=== PATIENT | female | born 1985 | race American Indian/Alaskan Native ===

== ENCOUNTER 2017-03-22 13:59 | Emergency (ER) | payer MEDICARE, MEDICAID ==
[2017-03-22 14:30] VITALS: BMI 42.3
[2017-03-22 14:31] VITALS: RESP 18; TEMP 98.5
--- NOTE | 2017-03-22 15:13 | C.PDOC ---
History Of Present Illness 31 year old female presents to ED with complaints of swelling and pain to left labia which she noticed this morning. She reports history of abscess in the past with surgical drainage by Dr Crespo, but not to this area. Patient Denies any fever, injury, drainage or any other complaints. Time Seen by Provider: 03/22/17 14:50 Chief Complaint (Nursing): Female Genitourinary History Per: Patient History/Exam Limitations: no limitations Onset/Duration Of Symptoms: Hrs Current Symptoms Are (Timing): Still Present Quality Of Discomfort: "Pain" Associated Symptoms: denies: Fever Past Medical History Reviewed: Historical Data, Nursing Documentation, Vital Signs Vital Signs: Last Vital Signs Temp 98.5 F 03/22/17 14:30 Pulse 78 03/22/17 15:26 Resp 18 03/22/17 15:26 BP 132/75 03/22/17 15:26 Pulse Ox 97 03/22/17 16:45 - Medical History PMH: Fractures (TOE TAPED NO SURGERY LEFT FOOT) - [facility] Procedures ATTACH PEDICLE GRAFT NEC (03/19/14) CENTRAL VENOUS CATHETER PLACEMENT WITH GUIDANCE (05/21/13) CLOSURE SKIN & SUBCUTANEOUS NEC (05/21/13) DRAINAGE OF RIGHT AXILLA, OPEN APPROACH, DIAGNOSTIC (07/05/16) EXCISION OF R UP LEG SUBCU/FASCIA, OPEN APPROACH (07/05/16) INFLUENZA VACCINATION (08/15/13) NONEXCIS DEBRID OF WOUND, INFECT, OR BURN (08/15/13) OTHER SKIN & SUBQ I D (08/15/13) PERCUTANEOUS ABDOMINAL DRAINAGE (05/21/13) RADICAL EXCIS SKIN LES (10/17/14) REPAIR ABDOMEN SUBCUTANEOUS TISSUE AND FASCIA, OPEN APPROACH (01/07/16) SKIN REPAIR & PLASTY NEC (10/17/14) VACCINATION NEC (08/15/13) Family History: States: Unknown Family Hx - Social History Hx Tobacco Use: Yes Hx Alcohol Use: Yes Hx Substance Use: No - Immunization History Hx Tetanus Toxoid Vaccination: Yes Hx Influenza Vaccination: Yes Hx Pneumococcal Vaccination: No Review Of Systems Constitutional: Negative for: Fever, Chills Gastrointestinal: Negative for: Abdominal Pain Genitourinary: Negative for: Dysuria, Frequency, Vaginal Bleeding Physical Exam - Physical Exam Appears: Non-toxic, No Acute Distress Skin: Normal Color, Warm Head: Atraumatic, Normacephalic Oral Mucosa: Moist Cardiovascular: Rhythm Regular, No Murmur Respiratory: Normal Breath Sounds, No Rales, No Rhonchi, No Wheezing Gastrointestinal/Abdominal: Soft, No Tenderness, No Guarding, No Rebound Pelvic: Other (Left labia with tender indurated 1cm nodule and swelling to laba , no flunctuance) Extremity: Normal ROM, Capillary Refill (<2 seconds) Neurological/Psych: Oriented x3, Normal Speech, Normal Cognition ED Course And Treatment O2 Sat by Pulse Oximetry: 97 (RA) Pulse Ox Interpretation: Normal Medical Decision Making Medical Decision Makin31 year old female with tender nodule to left labia and surrounding inflammation , possible early abscess. Incision and drainage not indicated at this time. Recommend soaking area with warm towel or sitz bath and have area checked in 2- 3 days. Patient verbalized understanding. Disposition Counseled Patient/Family Regarding: Diagnosis, Need For Followup, Rx Given - Disposition Referrals: Demetris Crespo MD [Staff Provider] - Disposition: HOME/ ROUTINE Disposition Time: 15:11 Condition: STABLE Additional Instructions: Apply warm compress to area and sit in warm bath Take antibiotic as prescribed May need to have area checked again in 2-3 days for possible drainage Take pain medicine as needed Prescriptions: Sulfamethoxazole/Trimethoprim [Bactrim DS 800 mg-160 mg] 1 tab PO BID #14 tab Instructions: Sitz Bath (GEN), Cyst (ED) - POA Present On Arrival: None - Clinical Impression Clinical Impression: Swelling of labia - 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 - Scribe Statement The provider has reviewed the documentation as recorded by the Woodrowibdebi Villarreal All medical record entries made by the Rene were at my direction and personally dictated by me. I have reviewed the chart and agree that the record accurately reflects my personal performance of the history, physical exam, medical decision making, and the department course for this patient. I have also personally directed, reviewed, and agree with the discharge instructions and disposition.
[2017-03-22 15:27] VITALS: BP 132/75; PULSE 78
[2017-03-22 16:45] VITALS: O2SAT 97
== END 2017-03-22 15:27 | disposition home or self-care (01) ==
LOC: C.ER 13:59
DX: N90.89 Other specified noninflammatory disorders of vulva and perineum (principal)

== ENCOUNTER 2017-05-05 09:21 | Inpatient (IN) | payer OTHER, MEDICAID ==
[2017-05-05 09:22] VITALS: BMI 42.3
--- NOTE | 2017-05-05 09:43 | C.PDOC ---
History Of Present Illness Patient is a 31 y/o F with hx of abscesses that require surgical drainage, presenting with abscess Time Seen by Provider: 05/05/17 09:37 Chief Complaint (Nursing): Abnormal Skin Integrity Past Medical History Vital Signs: Last Vital Signs Temp 98.4 F 05/05/17 09:36 Pulse 77 05/05/17 10:20 Resp 20 05/05/17 10:20 BP 141/88 05/05/17 10:20 Pulse Ox 99 05/05/17 10:20 - Medical History PMH: Fractures (TOE TAPED NO SURGERY LEFT FOOT) Denies: Chronic Kidney Disease - [facility] Procedures ATTACH PEDICLE GRAFT NEC (03/19/14) CENTRAL VENOUS CATHETER PLACEMENT WITH GUIDANCE (05/21/13) CLOSURE SKIN & SUBCUTANEOUS NEC (05/21/13) DRAINAGE OF RIGHT AXILLA, OPEN APPROACH, DIAGNOSTIC (07/05/16) EXCISION OF R UP LEG SUBCU/FASCIA, OPEN APPROACH (07/05/16) INFLUENZA VACCINATION (08/15/13) NONEXCIS DEBRID OF WOUND, INFECT, OR BURN (08/15/13) OTHER SKIN & SUBQ I D (08/15/13) PERCUTANEOUS ABDOMINAL DRAINAGE (05/21/13) RADICAL EXCIS SKIN LES (10/17/14) REPAIR ABDOMEN SUBCUTANEOUS TISSUE AND FASCIA, OPEN APPROACH (01/07/16) SKIN REPAIR & PLASTY NEC (10/17/14) VACCINATION NEC (08/15/13) Family History: States: Unknown Family Hx - Social History Hx Tobacco Use: Yes Hx Alcohol Use: Yes Hx Substance Use: No - Immunization History Hx Tetanus Toxoid Vaccination: Yes Hx Influenza Vaccination: Yes Hx Pneumococcal Vaccination: No Review Of Systems Constitutional: Negative for: Fever, Chills Cardiovascular: Negative for: Chest Pain Respiratory: Negative for: Cough, Shortness of Breath, SOB with Excertion, Wheezing Gastrointestinal: Negative for: Nausea, Vomiting, Abdominal Pain, Diarrhea, Constipation Skin: Positive for: Other (abscess to R axilla) Physical Exam - Physical Exam Appears: Well, Non-toxic Skin: Other (indurated abscess to R axilla) Head: Atraumatic, Normacephalic Eye(s): bilateral: Normal Inspection, PERRL, EOMI Neck: Normal, Supple Chest: Symmetrical Cardiovascular: Rhythm Regular Respiratory: Normal Breath Sounds, No Rales, No Rhonchi, No Wheezing Gastrointestinal/Abdominal: Soft, No Tenderness Back: Normal Inspection, No CVA Tenderness Extremity: Normal ROM, No Pedal Edema Pulses: Left Radial: Normal, Right Radial: Normal Neurological/Psych: Oriented x3 Gait: Steady ED Course And Treatment - Laboratory Results Result Diagrams: 05/05/17 10:25 05/05/17 10:25 Medical Decision Making Medical Decision Making: Will get ekg, cxray, and pre-op labs. Patient has been NPO since midnight. Spoke to Dr. Crespo who will take patient to OR today for I&D. Requesting admission to hospitalist with IV antibiotics (ancef) 10:12AM EKG shows NSR at 81bpm with normal intervals and no ST changes. Cxray negative 10:44AM Labs grossly normal. negative. Dr. Mahmood accepts patient to his service. Disposition - Disposition Disposition: HOSPITALIZED Disposition Time: 10:46 Condition: FAIR - Clinical Impression Clinical Impression: Abscess Decision To Admit - Pt Status Changed To: Hospital Disposition Of: Observation - . Bed Request Type: Regular Admitting Physician: Ja Mahmood Patient Diagnosis: Abscess
[2017-05-05] MEDS: Sodium Chloride 0.9% 1,000 ML IV SCH (10:13)
[2017-05-05] MEDS ORDERED: Sodium Chloride 0.9% 1,000 ML ONE (10:17)
[2017-05-05 10:30] LABS: BASO % 0.3 % (0.0-2.0); EOS # 0.1 K/uL (0.0-0.7); EOS % 1.6 % (0.0-4.0); HEMOGLOBIN 11.8 g/dL (11.0-16.0); LYMPH # 3.3 K/uL (1.0-4.3); LYMPH % 41.2 % (20.0-40.0); MEAN CELL VOLUME 88.5 fL (81.0-99.0); MEAN CORPUSCULAR HEMOGLOBIN 29.3 pg (27.0-31.0); MEAN CORPUSCULAR HGB CONC 33.1 g/dL (33.0-37.0); MEAN PLATELET VOLUME 9.5 fL (7.2-11.7); MONO # 0.4 K/uL (0.0-0.8); MONO % 5.3 % (0.0-10.0); NEUT # 4.1 K/uL (1.8-7.0); NEUT % 51.6 % (50.0-75.0); RBC 4.01 Mil/uL (3.80-5.20); RED CELL DISTRIBUTION WIDTH 14.3 % (11.5-14.5)
[2017-05-05 10:42] LABS: ALBUMIN 3.8 g/dL (3.5-5.0); ALT/SGPT 25 U/L (9-52); AST/SGOT 23 U/L (14-36); BLOOD UREA NITROGEN 14 mg/dL (7-17); CALCIUM 8.6 mg/dl (8.6-10.4); GFR AFRICAN-AMERICAN > 60; GFR NON-AFRICAN AMERICAN > 60; INR 1.1; PROTHROMBIN TIME 12.4 SECONDS (9.7-12.2)
--- NOTE | 2017-05-05 10:50 | RAD ---
HISTORY: pre-op COMPARISON: No prior. FINDINGS: LUNGS: Mild venous congestion. PLEURA: No significant pleural effusion identified, no pneumothorax apparent. CARDIOVASCULAR: Normal. OSSEOUS STRUCTURES: No significant abnormalities. VISUALIZED UPPER ABDOMEN: Normal. OTHER FINDINGS: None. IMPRESSION: Mild venous congestion.
--- NOTE | 2017-05-05 11:53 | CP.PCM.HP ---
<Jesse Palacios - Last Filed: 05/05/17 15:23> History of Present Illness - History of Present Illness History of Present Illness: PGY1 Medicine Note for Dr. Brenna Mahmood Patient is a 31 yo F with hx of abscesses that require surgical drainage, presenting with an abscess in her right axilla. The patient states that she has had many abscesses form from her waist up to her arms over the past 4-5 years. The patient noticed this current abscess approximately a day or two ago. She called Dr. Crsepo who imformed her to go to the hospital and he will perform an I&D later this afternoon. Patient denies f/c, n/v, d/c, sob, cough, cp, dizziness, blurred vision, slurred speech, REIS, weakness, numbness, tingling, rash or any open wounds. PMH: abscesses requiring I&D PSH: none other than I&D FamilyHx: unremarkable - mom/dad/sister - healthy Social: Denies tobacco/alcohol/drug Present on Admission - Present on Admission Any Indicators Present on Admission: No Review of Systems - Review of Systems All systems: reviewed and no additional remarkable complaints except - Constitutional Constitutional: As Per HPI - EENT Eyes: As Per HPI Ears: As Per HPI Nose/Mouth/Throat: As Per HPI - Breasts Breasts: As Per HPI - Cardiovascular Cardiovascular: As Per HPI - Respiratory Respiratory: As Per HPI - Gastrointestinal Gastrointestinal: As Per HPI - Genitourinary Genitourinary: As Per HPI - Reproductive: Female Reproductive:Female: As Per HPI - Menstruation Menstruation: As Per HPI - Musculoskeletal Musculoskeletal: As Per HPI - Integumentary Integumentary: As Per HPI - Neurological Neurological: As Per HPI - Psychiatric Psychiatric: As Per HPI - Endocrine Endocrine: As Per HPI - Hematologic/Lymphatic Hematologic: As Per HPI Past Patient History - Infectious Disease Hx of Infectious Diseases: None - Past Medical History & Family History Past Medical History?: Yes - Past Social History Smoking Status: Light Smoker < 10 Cigarettes Daily - CARDIAC Hx Cardiac Disorders: No - PULMONARY Hx Respiratory Disorders: No - NEUROLOGICAL Hx Neurological Disorder: No - HEENT Hx HEENT Problems: No - RENAL Hx Chronic Kidney Disease: No - ENDOCRINE/METABOLIC Hx Endocrine Disorders: No - HEMATOLOGICAL/ONCOLOGICAL Hx Blood Disorders: No - INTEGUMENTARY Hx Dermatological Problems: Yes Other/Comment: recurrent multiple skin abscesses - MUSCULOSKELETAL/RHEUMATOLOGICAL Hx Fractures: Yes (TOE TAPED NO SURGERY LEFT FOOT) - GASTROINTESTINAL Hx Gastrointestinal Disorders: No - GENITOURINARY/GYNECOLOGICAL Hx Genitourinary Disorders: No - PSYCHIATRIC Hx Substance Use: No - SURGICAL HISTORY Hx Surgeries: Yes Other/Comment: Incision and drainage of abscess (rt. armpit, under the stomach, ) 2013 EXC. SUPRAPUBIC MASS - ANESTHESIA Hx Anesthesia: Yes Hx Anesthesia Reactions: No Hx Malignant Hyperthermia: No Meds Allergies/Adverse Reactions: Allergies Allergy/AdvReac Type Severity Reaction Status Date / Time No Known Allergies Allergy Verified 05/05/17 09:42 Physical Exam - Constitutional Appears: Well, No Acute Distress - Head Exam Head Exam: ATRAUMATIC, NORMOCEPHALIC - Eye Exam Eye Exam: EOMI - ENT Exam ENT Exam: Mucous Membranes Moist - Respiratory Exam Respiratory Exam: Clear to Auscultation Bilateral, NORMAL BREATHING PATTERN. absent: Accessory Muscle Use, Rhonchi, Wheezes, Respiratory Distress - Cardiovascular Exam Cardiovascular Exam: REGULAR RHYTHM, +S1, +S2 - GI/Abdominal Exam GI & Abdominal Exam: Normal Bowel Sounds, Soft. absent: Distended, Firm, Guarding, Rigid, Tenderness - Neurological Exam Neurological exam: Alert, Oriented x3 - Psychiatric Exam Psychiatric exam: Normal Affect, Normal Mood - Skin Skin Exam: Dry, Normal Color, Warm Results - Vital Signs Recent Vital Signs: Last Vital Signs Temp 98.4 F 05/05/17 09:36 Pulse 77 05/05/17 10:20 Resp 20 05/05/17 10:20 BP 141/88 05/05/17 10:20 Pulse Ox 99 05/05/17 10:20 - Labs Result Diagrams: 05/05/17 10:25 05/05/17 10:25 Labs: Laboratory Results - last 24 hr 05/05/17 05/05/17 05/05/17 10:24 10:25 10:25 WBC 8.0 RBC 4.01 Hgb 11.8 Hct 35.5 MCV 88.5 MCH 29.3 MCHC 33.1 RDW 14.3 Plt Count 263 MPV 9.5 Neut % (Auto) 51.6 Lymph % (Auto) 41.2 H [place] % (Auto) 5.3 Eos % (Auto) 1.6 Baso % (Auto) 0.3 Neut # 4.1 Lymph # 3.3 [place] # 0.4 Eos # 0.1 Baso # 0.0 PT 12.4 H INR 1.1 APTT 33 Sodium Potassium Chloride Carbon Dioxide Anion Gap BUN Creatinine Est GFR ( Amer) Est GFR (Non-Af Amer) Random Glucose Calcium Total Bilirubin AST ALT Alkaline Phosphatase Total Protein Albumin Globulin Albumin/Globulin Ratio Blood Type A POSITIVE 05/05/17 10:25 WBC RBC Hgb Hct MCV MCH MCHC RDW Plt Count MPV Neut % (Auto) Lymph % (Auto) [place] % (Auto) Eos % (Auto) Baso % (Auto) Neut # Lymph # [place] # Eos # Baso # PT INR APTT Sodium 139 Potassium 3.9 Chloride 101 Carbon Dioxide 26 Anion Gap 16 BUN 14 Creatinine 0.7 Est GFR ( Amer) > 60 Est GFR (Non-Af Amer) > 60 Random Glucose 95 Calcium 8.6 Total Bilirubin 0.4 AST 23 ALT 25 Alkaline Phosphatase 53 Total Protein 7.8 Albumin 3.8 Globulin 4.0 H Albumin/Globulin Ratio 1.0 Blood Type Assessment & Plan - Assessment and Plan (Free Text) Plan: Right Axilla Abscess Scheduled for I&D with Dr. Crespo later today Ancef 500mg once in ED CXR/EKG - unremarkable No chronic issues Patient medically stabilized for surgery F/U AM labs Case Discussed With Dr. Brenna Palacios PGY1 - Date & Time Date: 05/05/17 Time: 11:52 <Ja Mahmood - Last Filed: 05/05/17 21:34> Results - Vital Signs Recent Vital Signs: Last Vital Signs Temp 97.6 F 05/05/17 17:44 Pulse 75 05/05/17 17:44 Resp 18 05/05/17 17:44 BP 133/80 05/05/17 17:44 Pulse Ox 99 05/05/17 17:44 - Labs Result Diagrams: 05/05/17 10:25 05/05/17 10:25 Attending/Attestation - Attestation I have personally seen and examined this patient.: Yes I have fully participated in the care of the patient.: Yes I have reviewed all pertinent clinical information: Yes Notes (Text): 05/05/17 21:28 Patient was seen and examined at 11:50 AM in the ER History, Physical, Assessment and Plan were thoroughly gone over with the resident. Also noted on exam above: Right Axilla irregular hardness, extremely tender to the touch: this was a large area and adequate measurement could not be obtained Also noted on GI exam in the LLQ there are 2 small 1 cm areas of hardness under the skin that are not tender (patient explains that she has made Dr. Crespo aware of these areas and was told that they do not need to be I&D at this time). Patient was also concerned about the possibility of an abscess on the Left Labial Fold of the vaginal area however no hardness/fluctuance was palpated ( this portion of the exam was done in the presence of Nurse Mcdowell in the ER) Dr. Crespo asked this patient to be admitted to the Hospitalist Service. Please note that there are NO chronic medical issues for this patient other than recurrent abscesses Ja Mahmood D.O.
[2017-05-05] MEDS ORDERED: Propofol 10 mg/ml Inj (20 ML) ONE (14:38)
[2017-05-05] MEDS ORDERED: Lidocaine Hydrochloride 5 ML INJ ONE ×2 (14:39→14:41)
[2017-05-05] MEDS ORDERED: HYDROmorphone 0.5 mg/0.5 ml ISec IVP PRN (15:58)
[2017-05-05] MEDS ORDERED: Bupivacaine 0.5%/Epi 1:200,000 (10 ML SOL) ONE (16:16)
[2017-05-05] MEDS ORDERED: Bupivacaine HCl 0.5% PF (10 ml) Inj ONE (16:17)
[2017-05-05] MEDS ORDERED: Lactated Ringer's 1,000 ML IV ONE (17:30)
[2017-05-05] MEDS: Oxycodone/Acetaminophen 5/325 mg Tab PO PRN ×2 (18:22→22:04)
[2017-05-05] MEDS: Dextrose 5%/0.45% NS 1,000 ML IV SCH (22:05)
[2017-05-05] MEDS: Benzocaine/Menthol (Cepacol) Lozenge MT PRN (22:17)
[2017-05-06] MEDS: Benzocaine/Menthol (Cepacol) Lozenge MT PRN ×2 (03:38→14:11)
--- NOTE | 2017-05-06 04:01 | OP ---
PROCEDURE DATE: 05/05/2017 PREOPERATIVE DIAGNOSIS: Large right axillary abscess. POSTOPERATIVE DIAGNOSIS: Large right axillary abscess. PROCEDURE PERFORMED: Wide and deep excision of 5 cm inflammatory mass of right axilla with drainage of underlying abscess, repair of axillary blood vessel and partial adjacent tissue transfer closure. SURGEON: Dr. Crespo. TYPE OF ANESTHESIA: General. ESTIMATED BLOOD LOSS: 30 mL. POSTOPERATIVE CONDITION: Stable. INDICATIONS FOR SURGERY: This is a 31-year-old female with onset of painful infected mass in the right axilla, suspicious for underlying abscess. She was taken to the OR after presenting in the emergency room. DESCRIPTION OF PROCEDURE: The patient was taken to the operating room with the right arm extended and the axillary area was prepped and draped. A generous elliptical incision was made surrounding the inflammatory mass down into the axillary fascia and it was completely removed. Bleeding was controlled using Bovie and exposed bleeding blood vessel was repaired and the wound was irrigated with copious amounts of saline solution. A partial tissue transfer closure was performed at the periphery and the central portion of the wound was packed with a wet saline gauze. The patient tolerated the procedure well and returned to recovery room in stable condition. Demetris Crespo MD
[2017-05-06] MEDS: Oxycodone/Acetaminophen 5/325 mg Tab PO PRN (06:07)
[2017-05-06] MEDS: Sodium Chloride 0.9% 1,000 ML IV SCH (06:11)
[2017-05-06 07:21] LABS: BASO % 0.6 % (0.0-2.0); EOS # 0.1 K/uL (0.0-0.7); EOS % 1.7 % (0.0-4.0); HEMOGLOBIN 10.6 g/dL (11.0-16.0); LYMPH # 3.6 K/uL (1.0-4.3); LYMPH % 49.7 % (20.0-40.0); MEAN CELL VOLUME 88.3 fL (81.0-99.0); MEAN CORPUSCULAR HEMOGLOBIN 29.8 pg (27.0-31.0); MEAN CORPUSCULAR HGB CONC 33.7 g/dL (33.0-37.0); MEAN PLATELET VOLUME 9.2 fL (7.2-11.7); MONO # 0.4 K/uL (0.0-0.8); MONO % 5.5 % (0.0-10.0); NEUT # 3.1 K/uL (1.8-7.0); NEUT % 42.5 % (50.0-75.0); NRBC % 0.1 % (0.0-2.0); RBC 3.56 Mil/uL (3.80-5.20); RED CELL DISTRIBUTION WIDTH 14.4 % (11.5-14.5); WHITE BLOOD COUNT 7.3 K/uL (4.8-10.8)
[2017-05-06 07:26] LABS: ALBUMIN 3.3 g/dL (3.5-5.0)
[2017-05-06 07:29] LABS: AST/SGOT 20 U/L (14-36); GFR AFRICAN-AMERICAN > 60; GFR NON-AFRICAN AMERICAN > 60
[2017-05-06 07:30] LABS: ALT/SGPT 29 U/L (9-52); BLOOD UREA NITROGEN 10 mg/dL (7-17); CALCIUM 7.8 mg/dl (8.6-10.4)
[2017-05-06] MEDS: Dextrose 5%/0.45% NS 1,000 ML IV SCH (09:55)
--- NOTE | 2017-05-06 12:44 | CP.PCM.CON ---
History of Present Illness - History of Present Illness History of Present Illness: Hospitalist Consult Note (Patient was seen and examined at 12:25 PM 05/06/17 wit Mom present) 31 year old female who was admitted on 05/05/17 for I&D of Right Axilla Abscess which she underwent on 05/05/[address] Crespo. She currently is NPO and another I&D is planned for 3 PM today. Currently there is NO chest pain, NO palpitations, NO SOB/Cough/Wheezing, (+) Mild Soreness in the throat, NO abdominal pain, NO n/v/d, Has not moved her bowels today as she states she has not been eating since her admission, NO burning/pain with urination, NO lightheadedness/dizziness, NO new changes in vision/eye pain, NO new changes in hearing/ear pain, NO paresthesias. NO edema. (+)Soreness in the Right Axilla and she states that her pain is controlled and she is not in any distress. Exam: General: AAOx3, NAD HEENT: NCA, EOMI, PERRLA, NO cervical/supraclavicular/submandibular lymphadenopathy, NO thyromegaly, NO pharngeal erythema/exudate Cardio: NS1 and NS2, NO M/R/G Resp: CTA B/L, NO R/R/W GI: BSx4, Soft, NT, ND, Central Obesity, NO guarding/rebound tenderness Ext: Capillary Refill is 2 seconds, NO edema, Pulses are strong and equal, Tenderness in the Right Axilla area Neuro: CNII through XII are grossly intact Assessment and Plan: 1). Right Axilla Abscess Management as per Primary Dr. Crespo Patient already has Cepacol Lozenges on board for the soreness in the throat: the pharyngeal and neck exam was unremarkable Patient was encouraged to use the incentive spirometer 10 times every hour As patient is stable and there are no chronic medical issues at this time, Medicine Team will be signing off. Please give us a call/reconsult us if there are any issues. Ja Mahmood D.O. Past Patient History - Infectious Disease Hx of Infectious Diseases: None - Past Medical History & Family History Past Medical History?: Yes - Past Social History Smoking Status: Light Smoker < 10 Cigarettes Daily - CARDIAC Hx Cardiac Disorders: No - PULMONARY Hx Respiratory Disorders: No - NEUROLOGICAL Hx Neurological Disorder: No - HEENT Hx HEENT Problems: No - RENAL Hx Chronic Kidney Disease: No - ENDOCRINE/METABOLIC Hx Endocrine Disorders: No - HEMATOLOGICAL/ONCOLOGICAL Hx Blood Disorders: No - INTEGUMENTARY Hx Dermatological Problems: Yes Other/Comment: recurrent multiple skin abscesses - MUSCULOSKELETAL/RHEUMATOLOGICAL Hx Fractures: Yes (TOE TAPED NO SURGERY LEFT FOOT) - GASTROINTESTINAL Hx Gastrointestinal Disorders: No - GENITOURINARY/GYNECOLOGICAL Hx Genitourinary Disorders: No - PSYCHIATRIC Hx Substance Use: No - SURGICAL HISTORY Hx Surgeries: Yes Other/Comment: Incision and drainage of abscess (rt. armpit, under the stomach, ) 2013 EXC. SUPRAPUBIC MASS - ANESTHESIA Hx Anesthesia: Yes Hx Anesthesia Reactions: No Hx Malignant Hyperthermia: No Meds Allergies/Adverse Reactions: Allergies Allergy/AdvReac Type Severity Reaction Status Date / Time No Known Allergies Allergy Verified 05/05/17 09:42 - Medications Medications: Current Medications Benzocaine/Menthol (Cepacol Sore Throat) 1 tabitha MT Q4 PRN PRN Reason: Sore Throat Last Admin: 05/06/17 03:38 Dose: 1 tabitha Docusate Sodium (Colace) 100 mg PO BID [facility] Last Admin: 05/06/17 09:55 Dose: Not Given Famotidine (Pepcid) 20 mg IVP Q12 [facility] Last Admin: 05/06/17 09:55 Dose: 20 mg Hydromorphone HCl (Dilaudid) 0.5 mg IVP Q10M PRN PRN Reason: Pain, moderate (4-7) Sodium Chloride (Sodium Chloride 0.9%) 1,000 mls @ 100 mls/hr IV .Q10H [facility] Last Admin: 05/06/17 06:11 Dose: Not Given Dextrose/Sodium Chloride (Dextrose 5%/0.45% Ns 1000 Ml) 1,000 mls @ 60 mls/hr IV .[id number] [facility] Last Admin: 05/06/17 09:55 Dose: Not Given Ondansetron HCl (Zofran Inj) 4 mg IVP Q6 PRN PRN Reason: Nausea/Vomiting Oxycodone/Acetaminophen (Percocet 5/325 Mg Tab) 2 tab PO Q4H PRN PRN Reason: pain Stop: 05/08/17 16:24 Last Admin: 05/06/17 06:07 Dose: 2 tab Results - Vital Signs Recent Vital Signs: Last Vital Signs Temp 98.0 F 05/06/17 07:00 Pulse 73 05/06/17 07:00 Resp 20 05/06/17 07:00 BP 117/77 05/06/17 07:00 Pulse Ox 96 05/06/17 07:00 - Labs Result Diagrams: 05/06/17 07:10 05/06/17 07:10 Labs: Laboratory Results - last 24 hr 05/06/17 05/06/17 07:10 07:10 WBC 7.3 RBC 3.56 L Hgb 10.6 L Hct 31.5 L MCV 88.3 MCH 29.8 MCHC 33.7 RDW 14.4 Plt Count 253 MPV 9.2 Neut % (Auto) 42.5 L Lymph % (Auto) 49.7 H [place] % (Auto) 5.5 Eos % (Auto) 1.7 Baso % (Auto) 0.6 Neut # 3.1 Lymph # 3.6 [place] # 0.4 Eos # 0.1 Baso # 0.0 Sodium 136 Potassium 3.8 Chloride 99 Carbon Dioxide 28 Anion Gap 12 BUN 10 Creatinine 0.7 Est GFR ( Amer) > 60 Est GFR (Non-Af Amer) > 60 Random Glucose 92 Calcium 7.8 L Total Bilirubin 0.5 AST 20 ALT 29 Alkaline Phosphatase 42 Total Protein 6.7 Albumin 3.3 L Globulin 3.4 Albumin/Globulin Ratio 1.0 Beta HCG, Quant < 2.39
[2017-05-06] MEDS ORDERED: Midazolam 2 MG/2 ML VIAL ONE (15:39)
[2017-05-06] MEDS ORDERED: Propofol 10 mg/ml Inj (20 ML) ONE ×2 (15:40→16:19)
[2017-05-06] MEDS ORDERED: Bupivacaine HCl 0.25% PF (10 ml) Inj ONE ×2 (15:43→16:10)
[2017-05-06] MEDS ORDERED: Lactated Ringer's 1,000 ML IV ONE (15:50)
[2017-05-06] MEDS ORDERED: ceFAZolin IV 2 gm in Dextrose 1 GM/50 ML BAG IVPB ONE (15:50)
[2017-05-06] MEDS ORDERED: Bacitracin Ointment 30 GM TUBE ONE (16:21)
[2017-05-06] MEDS ORDERED: HYDROmorphone 0.5 mg/0.5 ml ISec IVP PRN (16:36)
[2017-05-06 17:25] VITALS: BP 135/84; PULSE 87; RESP 18; TEMP 98; O2SAT 97
--- NOTE | 2017-05-07 04:31 | OP ---
PROCEDURE DATE: 05/06/2017 PREOPERATIVE DIAGNOSIS: Infected abscess cavity, right axilla. POSTOPERATIVE DIAGNOSIS: Infected abscess cavity, right axilla. PROCEDURES: 1. Re-drainage of deep right axillary abscess with debridement. 2. Adjacent tissue transfer closure greater than 30 sq cm. SURGEON: Dr. Demetris Crespo. TYPE OF ANESTHESIA: Local sedation. ESTIMATED BLOOD LOSS: 20 mL. POSTOPERATIVE CONDITION: Stable. INDICATIONS FOR SURGERY: This is a 31-year-old female with recurrent right axillary abscess, who presented yesterday, underwent incision, drainage, and debridement of the very deep abscess. She has a deep packing in, taken back to the OR under anesthesia for change, cleansing, possible closure. DESCRIPTION OF THE PROCEDURE: The patient was taken to the operating room, IV sedation was administered and the right arm was extended in the axillary area, the packing was removed and the area was prepped and draped. The wound was aggressively debrided and any remaining collections were drained and cultured. Bleeding was controlled using the Bovie. Next, generous tissue flaps were raised using the Bovie and an adjacent tissue transfer closure greater than 30 sq cm was performed using multiple layers, heavy Monocryl, and subcuticular Monocryl. The patient tolerated the procedure well and returned to recovery room in stable condition. Demetris Crespo MD
== END 2017-05-06 18:48 | disposition home or self-care (01) | DRG 572 ==
LOC: C.ER 09:21 → C.SDS 10:00 → C.9E 10:09 → C.5T 13:36 → C.9E 14:02 → C.5T 14:19 → OBSVTOIN 16:23
PROVIDERS: ADMIT Family Medicine; ATTEND Family Medicine
PROC: 0J9D0ZZ Drainage of Right Upper Arm Subcutaneous Tissue and Fascia, Open Approach (ICD-10-PCS; 2017-05-05)
PROC: 0JX Subcutaneous Tissue and Fascia, Transfer (ICD-10-PCS; 2017-05-05)
PROC: 0JBD0ZZ Excision of Right Upper Arm Subcutaneous Tissue and Fascia, Open Approach (ICD-10-PCS; principal; 2017-05-05 15:40)
PROC: 0J9D0ZZ Drainage of Right Upper Arm Subcutaneous Tissue and Fascia, Open Approach (ICD-10-PCS; 2017-05-06)
PROC: 0JBD0ZZ Excision of Right Upper Arm Subcutaneous Tissue and Fascia, Open Approach (ICD-10-PCS; 2017-05-06)
PROC: 0JXL0ZZ Transfer Right Upper Leg Subcutaneous Tissue and Fascia, Open Approach (ICD-10-PCS; 2017-05-06)
DX: L02.411 Cutaneous abscess of right axilla (principal)

== ENCOUNTER 2018-12-19 13:16 | Inpatient (IN) | payer MEDICARE, MEDICAID ==
[2018-12-19 13:16] VITALS: BMI 42.3
--- NOTE | 2018-12-19 14:00 | C.PDOC ---
History Of Present Illness 33 y/o female presents to the ED for evaluation of abscess in the right axilla, developing for the past week. Patient reports there are two swollen, painful areas in the right axilla. No drainage. She describes 10/10 pain in the area, and has been taking Advil at home with minimal relief. She also notes subjective fever, chills, and nausea. No vomiting or diarrhea. Patient reports hx of multiple abscesses in the past (to both axilla, abdomen, and lower extremity), some of which required surgery to drain. She went to see her surgeon Dr. Crespo today, who referred patient here for same day surgery. Otherwise patient denies any chest pain, SOB, extremity weakness, numbness, or paresthesias. Time Seen by Provider: 12/19/18 13:41 Chief Complaint (Nursing): Abnormal Skin Integrity History Per: Patient History/Exam Limitations: no limitations Onset/Duration Of Symptoms: Days (x 7) Current Symptoms Are (Timing): Still Present Past Medical History Reviewed: Historical Data, Nursing Documentation, Vital Signs Vital Signs: Last Vital Signs Temp 98.8 F 12/19/18 13:34 Pulse 86 12/19/18 13:34 Resp 18 12/19/18 13:34 BP 119/83 12/19/18 13:34 Pulse Ox 99 12/19/18 13:34 - Medical History PMH: Fractures (TOE TAPED NO SURGERY LEFT FOOT) Denies: Chronic Kidney Disease - [facility] Procedures ATTACH PEDICLE GRAFT NEC (03/19/14) CENTRAL VENOUS CATHETER PLACEMENT WITH GUIDANCE (05/21/13) CLOSURE SKIN & SUBCUTANEOUS NEC (05/21/13) DRAINAGE OF R UP ARM SUBCU/FASCIA, OPEN APPROACH (05/05/17) DRAINAGE OF RIGHT AXILLA, OPEN APPROACH, DIAGNOSTIC (07/05/16) EXCISION OF R UP ARM SUBCU/FASCIA, OPEN APPROACH (05/05/17) EXCISION OF R UP LEG SUBCU/FASCIA, OPEN APPROACH (07/05/16) INFLUENZA VACCINATION (08/15/13) NONEXCIS DEBRID OF WOUND, INFECT, OR BURN (08/15/13) OTHER SKIN & SUBQ I D (08/15/13) PERCUTANEOUS ABDOMINAL DRAINAGE (05/21/13) RADICAL EXCIS SKIN LES (10/17/14) REPAIR ABDOMEN SUBCUTANEOUS TISSUE AND FASCIA, OPEN APPROACH (01/07/16) SKIN REPAIR & PLASTY NEC (10/17/14) TRANSFER R UP ARM SUBCU/FASCIA, PERC APPROACH (05/05/17) TRANSFER R UP LEG SUBCU/FASCIA, OPEN APPROACH (05/05/17) VACCINATION NEC (08/15/13) Family History: States: Unknown Family Hx - Social History Hx Tobacco Use: Yes Hx Alcohol Use: Yes (socially) Hx Substance Use: No - Immunization History Hx Tetanus Toxoid Vaccination: Yes Hx Influenza Vaccination: Yes Hx Pneumococcal Vaccination: No Review Of Systems Constitutional: Positive for: Fever, Chills Cardiovascular: Negative for: Chest Pain Respiratory: Negative for: Cough, Shortness of Breath Gastrointestinal: Positive for: Nausea. Negative for: Vomiting, Abdominal Pain, Diarrhea Musculoskeletal: Negative for: Back Pain Skin: Positive for: Other (painful abscesses x2 to right axilla) Neurological: Negative for: Weakness, Numbness Physical Exam - Physical Exam Appears: Well, Non-toxic, No Acute Distress Skin: Normal Color, Warm Head: Atraumatic, Normacephalic Eye(s): bilateral: Normal Inspection Neck: Normal ROM Chest: Symmetrical Cardiovascular: Rhythm Regular Respiratory: Normal Breath Sounds, No Accessory Muscle Use Extremity: Normal ROM (to upper extremities), Capillary Refill (less than 2 sec), Other (Right axilla is edematous and warm to touch, with 2 palpable abscesses -- the smaller is carlitos-sized and fluctuant, no active drainage; the larger is 2 inches in diameter, indurated, and fluctuant, with no drainage) Pulses: Left Radial: Normal, Right Radial: Normal Neurological/Psych: Oriented x3 ED Course And Treatment - Laboratory Results Result Diagrams: 12/19/18 14:25 12/19/18 14:25 ECG: Interpreted By Me, Viewed By Me ECG Rhythm: Sinus Rhythm ECG Interpretation: Normal Rate From EC O2 Sat by Pulse Oximetry: 99 Pulse Ox Interpretation: Normal Medical Decision Making Medical Decision Making: Plan: 13:[address] Crespo, who will take patient to the OR this afternoon. Requests pre-op labs and to start patient on IV vanco. Pending admission under PMD Dr. Donnelly. Attempted to call Dr. Donnelly via cell phone x2 with no answer. 14:00 Paged the office, on hold for 25+ minutes with no answer. 14:[address] Donnelly, states he will call back. 14:40 OR is ready for patient. Discussed with Dr. Crespo, will admit patient under [facility] service at this time. Disposition - Disposition Disposition: HOSPITALIZED Disposition Time: 14:40 Condition: STABLE - Clinical Impression Clinical Impression: Axillary abscess - PA / TERMITE INSPECTOR / 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 - Scribe Statement The provider has reviewed the documentation as recorded by the Scribe Bharati Miles All medical record entries made by the Woodrow[place] were at my direction and personally dictated by me. I have reviewed the chart and agree that the record accurately reflects my personal performance of the history, physical exam, medical decision making, and the department course for this patient. I have also personally directed, reviewed, and agree with the discharge instructions and disposition. Decision To Admit - Pt Status Changed To: Hospital Disposition Of: Observation - . Bed Request Type: Same Day Surgery Admitting Physician: Demetris Crespo Patient Diagnosis: Axillary abscess
[2018-12-19 14:29] LABS: BASO # 0.1 K/uL (0.0-0.2); BASO % 0.7 % (0.0-2.0); EOS # 0.1 K/uL (0.0-0.7); EOS % 0.9 % (0.0-4.0); HEMOGLOBIN 12.1 g/dL (11.0-16.0); LYMPH # 2.9 K/uL (1.0-4.3); MEAN CORPUSCULAR HEMOGLOBIN 30.5 pg (27.0-31.0); MEAN CORPUSCULAR HGB CONC 33.9 g/dL (33.0-37.0); MONO # 0.5 K/uL (0.0-0.8); MONO % 5.9 % (0.0-10.0); NEUT # 5.1 K/uL (1.8-7.0); NEUT % 58.5 % (50.0-75.0); RBC 3.97 Mil/uL (3.80-5.20); RED CELL DISTRIBUTION WIDTH 13.7 % (11.5-14.5); WHITE BLOOD COUNT 8.7 K/uL (4.8-10.8)
[2018-12-19 14:38] LABS: INR 1.3; PROTHROMBIN TIME 14.3 SECONDS (9.7-12.2)
[2018-12-19] MEDS ORDERED: Vancomycin 1 GM 1 GM/250 ML BAG IVPB ONE (14:44)
[2018-12-19 14:45] LABS: ALB/GLOB RATIO 1.1 (1.0-2.1); ALBUMIN 4.3 g/dL (3.5-5.0); ALT/SGPT 9 U/L (9-52); AST/SGOT 26 U/L (14-36); BLOOD UREA NITROGEN 14 mg/dL (7-17); CALCIUM 9.3 mg/dl (8.6-10.4); GFR NON-AFRICAN AMERICAN > 60
[2018-12-19 15:22] LABS: HCG,QUALITATIVE URINE NEGATIVE (NEGATIVE)
[2018-12-19 15:33] LABS: SQUAMOUS EPITHIAL 2 /hpf (0-5); URINE BILIRUBIN NEGATIVE (NEGATIVE); URINE BLOOD NEGATIVE (NEGATIVE); URINE CLARITY Hazy (Clear); URINE COLOR Yellow (YELLOW); URINE GLUCOSE (UA) NORMAL (Normal); URINE LEUKOCYTE ESTERASE NEG Leu/uL (Negative); URINE PROTEIN NEGATIVE (NEGATIVE); URINE UROBILINOGEN NORMAL mg/dL (0.2-1.0)
[2018-12-19] MEDS ORDERED: Midazolam 2 MG/2 ML VIAL ONE (15:47)
[2018-12-19] MEDS ORDERED: Propofol 10 mg/ml Inj (20 ML) ONE (15:47)
[2018-12-19] MEDS ORDERED: Bupivacaine 0.25% 20 ML INJ IJ ONE (15:47)
[2018-12-19] MEDS ORDERED: Lidocaine Hydrochloride 10 ML INJ ONE (15:47)
[2018-12-19] MEDS: Lactated Ringer's 1,000 ML IV SCH (16:45)
[2018-12-19] MEDS: Oxycodone/Acetaminophen 5/325 mg Tab PO PRN (22:20)
[2018-12-20] MEDS: Lactated Ringer's 1,000 ML IV SCH ×4 (00:02→06:00)
[2018-12-20] MEDS: Oxycodone/Acetaminophen 5/325 mg Tab PO PRN ×3 (03:30→23:50)
[2018-12-20 07:26] LABS: BASO % 0.3 % (0.0-2.0); EOS # 0.1 K/uL (0.0-0.7); EOS % 1.8 % (0.0-4.0); HEMOGLOBIN 10.3 g/dL (11.0-16.0); LYMPH # 3.1 K/uL (1.0-4.3); LYMPH % 40.6 % (20.0-40.0); MEAN CELL VOLUME 90.8 fL (81.0-99.0); MEAN CORPUSCULAR HEMOGLOBIN 30.4 pg (27.0-31.0); MEAN CORPUSCULAR HGB CONC 33.5 g/dL (33.0-37.0); MEAN PLATELET VOLUME 8.9 fL (7.2-11.7); MONO # 0.4 K/uL (0.0-0.8); MONO % 5.6 % (0.0-10.0); NEUT # 3.9 K/uL (1.8-7.0); NEUT % 51.7 % (50.0-75.0); RBC 3.4 Mil/uL (3.80-5.20); RED CELL DISTRIBUTION WIDTH 13.6 % (11.5-14.5); WHITE BLOOD COUNT 7.5 K/uL (4.8-10.8)
[2018-12-20 07:45] LABS: ALB/GLOB RATIO 1.1 (1.0-2.1); ALBUMIN 3.5 g/dL (3.5-5.0); ALT/SGPT 9 U/L (9-52); AST/SGOT 46 U/L (14-36); BLOOD UREA NITROGEN 17 mg/dL (7-17); CALCIUM 8.2 mg/dl (8.6-10.4); GFR NON-AFRICAN AMERICAN > 60
--- NOTE | 2018-12-20 08:53 | OP ---
PROCEDURE DATE: 12/19/2018 PREOPERATIVE DIAGNOSIS: Infected mass of right axilla. POSTOPERATIVE DIAGNOSIS: Infected mass of right axilla. PROCEDURE PERFORMED: Wide and deep excision of infected mass right drainage of underlying abscess and infection debridement and partial flap closure. SURGEON: Demetris Crespo MD ANESTHESIA: General. BLOOD LOSS: 30 mL. POSTOPERATIVE CONDITION: Stable. INDICATIONS FOR SURGERY: This is a 33-year-old female with history of a large right axillary abscess present in my office, was admitted through the emergency room. For now, we will undergo debridement and drainage procedure. DESCRIPTION OF PROCEDURE: The patient was taken to the operating room. General anesthesia was administered. The right axilla was prepped and draped. A generous elliptical incision was made surrounding the infected mass, totaling of 5 cm. It was excised deep into the fascia and removed. Underlying pus was drained and cultured. Bleeding was controlled using the Bovie. A larger axillary blood vessel was repaired. Wound was irrigated and debrided with pulse irrigation and also with Kantrex. Generous flaps were raised. Counter incisions were made, and a partial tissue flap closure was performed at the periphery using heavy Monocryl. Central portion of wound was packed open with saline gauze. The patient tolerated the procedure well and returned to recovery room in stable condition. Demetris Crespo MD
[2018-12-20] MEDS ORDERED: Influenza Vaccine 60 mcg/0.5 mL SYR (4YR UP) IM ONE (10:00)
[2018-12-20] MEDS: Enoxaparin 40 mg Syringe SC SCH (10:04)
[2018-12-20] MEDS ORDERED: Propofol 10 mg/ml Inj (20 ML) ONE (17:10)
[2018-12-20] MEDS ORDERED: Midazolam 2 MG/2 ML VIAL ONE (17:10)
[2018-12-20] MEDS: HYDROmorphone 0.5 mg/0.5 ml ISec IVP PRN ×2 (17:48→18:00)
[2018-12-20] MEDS ORDERED: Lactated Ringer's 1,000 ML IV ONE (18:30)
--- NOTE | 2018-12-20 21:19 | CP.PCM.CON ---
History of Present Illness - History of Present Illness History of Present Illness: 33 y/o female admitted with abscess in the right axilla, developing for the past week. She also notes subjective fever, chills, Patient reports hx of multiple abscesses in the past (to both axilla, abdomen, and lower extremity), some of which required surgery to drain. ID consulted empiric IV rx ordered PMH: multiple skin infections obesity Denies: Chronic Kidney Disease - [facility] Procedures ATTACH PEDICLE GRAFT NEC (03/19/14) CENTRAL VENOUS CATHETER PLACEMENT WITH GUIDANCE (05/21/13) CLOSURE SKIN & SUBCUTANEOUS NEC (05/21/13) DRAINAGE OF R UP ARM SUBCU/FASCIA, OPEN APPROACH (05/05/17) DRAINAGE OF RIGHT AXILLA, OPEN APPROACH, DIAGNOSTIC (07/05/16) EXCISION OF R UP ARM SUBCU/FASCIA, OPEN APPROACH (05/05/17) EXCISION OF R UP LEG SUBCU/FASCIA, OPEN APPROACH (07/05/16) INFLUENZA VACCINATION (08/15/13) NONEXCIS DEBRID OF WOUND, INFECT, OR BURN (08/15/13) OTHER SKIN & SUBQ I D (08/15/13) PERCUTANEOUS ABDOMINAL DRAINAGE (05/21/13) RADICAL EXCIS SKIN LES (10/17/14) REPAIR ABDOMEN SUBCUTANEOUS TISSUE AND FASCIA, OPEN APPROACH (01/07/16) SKIN REPAIR & PLASTY NEC (10/17/14) TRANSFER R UP ARM SUBCU/FASCIA, PERC APPROACH (05/05/17) TRANSFER R UP LEG SUBCU/FASCIA, OPEN APPROACH (05/05/17) VACCINATION NEC (08/15/13) Review of Systems - Constitutional Constitutional: absent: As Per HPI, Anorexia, Chills, Daytime Sleepiness, Excessive Sweating, Fatigue, Fever, Frequent Falls, Headache, Increased Appetite, Lethargy, Malaise, Night Sweats, Snoring, Sleep Apnea, Weight Gain, Weight Loss, Weakness, Other - EENT Eyes: absent: As Per HPI, Blind Spots, Blurred Vision, Change in Vision, Decreased Night Vision, Diplopia, Discharge, Dry Eye, Exophthalmos, Floaters, Irritation, Itchy Eyes, Loss of Peripheral Vision, Pain, Photophobia, Requires Corrective Lenses, Sees Flashes, Spots in Vision, Tunnel Vision, Other Visual Disturbances, Loss of Vision, Other Ears: absent: As Per HPI, Decreased Hearing, Ear Discharge, Ear Pain, Tinnitus, Abnormal Hearing, Disequilibrium, Dizziness, Other Nose/Mouth/Throat: absent: As Per HPI, Epistaxis, Nasal Congestion, Nasal Discharge, Nasal Obstruction, Nasal Trauma, Nose Pain, Post Nasal Drip, Sinus Pain, Sinus Pressure, Bleeding Gums, Change in Voice, Dental Pain, Dry Mouth, Dysphagia, Halitosis, Hoarsness, Lip Swelling, Mouth Lesions, Mouth Pain, Odynophagia, Sore Throat, Throat Swelling, Tongue Swelling, Facial Pain, Neck Pain, Neck Mass, Other - Breasts Breasts: absent: As Per HPI, Change in Shape, Mass, Pain, Nipple Discharge, Nipple Inversion, Skin Changes, Swelling, Other - Cardiovascular Cardiovascular: absent: As Per HPI, Acrocyanosis, Chest Pain, Chest Pain at Rest, Chest Pain with Activity, Claudication, Diaphoresis, Dyspnea, Dyspnea on Exertion, Edema, Irregular Heart Rhythm, Pain Radiating to Arm/Neck/Jaw, Leg Edema, Leg Ulcers, Lightheadedness, Orthopnea, Palpitations, Paroxysmal Nocturnal Dyspnea, Pedal Edema, Radiating Pain, Rapid Heart Rate, Slow Heart Rate, Syncope, Other - Respiratory Respiratory: absent: As Per HPI, Cough, Dyspnea, Hemoptysis, Dyspnea on Exertion, Wheezing, Snoring, Stridor, Pain on Inspiration, Chest Congestion, Excessive Mucous Production, Change in Mucous Color, Pain with Coughing, Other - Gastrointestinal Gastrointestinal: absent: As Per HPI, Abdominal Pain, Belching, Bloating, Change in Bowel Habits, Change in Stool Character, Coffee Ground Emesis, Constipation, Cramping, Diarrhea, Dyspepsia, Dysphagia, Early Satiety, Excessive Flatus, Fecal Incontinence, Heartburn, Hematemesis, Hematochezia, Loose Stools, Melena, Nausea, Odynophagia, Temesmus, Vomiting, Other - Genitourinary Genitourinary: absent: As Per HPI, Change in Urinary Stream, Difficulty Urinating, Dysuria, Flank Pain, Hematuria, Pyuria, Nocturia, Urinary Incontinence, Urinary Frequency, Urinary Hesitance, Urinary Urgency, Voiding Freq/Small Amts, Freq UTI, Hx Renal/Bladder Calculi, Hx /Renal Surgery, Bladder Distension, Other - Reproductive: Female Reproductive:Female: absent: As Per HPI, Amenorrhea, Amenorrhea/ Control, Currently Menstual, Cycle <21 Days, Cycle >35 Days, Cycle Variable, Menses 1-7 Days, Menses >/= 8 Days, Menses Variable, Cycle > 4 Weeks Between, No Menses for 6 Months, Heavy Menses, Light Menses, Normal Menses, Spotting Between Cycles, S/P Hysterectomy, Menopausal, Post Menopausal, Premenarche, Abnormal Vaginal Bleeding, Dysmenorrhea, Dyspareunia, Genital Lesions, Genital Pruritis, Pelvic Pain, Prolapse Symptoms, Sexual Dysfunction, Vaginal Discharge, Vaginal Dryness, Vaginal Odor, Vaginal Pruritis, Other - Menstruation Menstruation: absent: As Per HPI, Amenorrhea, Amenorrhea/ Control, Currentl y Menstual, Cycle <21 Days, Cycle >35 Days, Cycle Variable, Menses 1-7 Days, Menses >/= 8 Days, Menses Variable, Cycle > 4 Weeks Between, No Menses for 6 Months, Heavy Menses, Light Menses, Normal Menses, Spotting Between Cycles, S/P Hysterectomy, Menopausal, Post Menopausal, Premenarche, Abnormal Vaginal Bleeding, Dysmenorrhea, Other - Musculoskeletal Musculoskeletal: absent: As Per HPI, Abnormal Gait, Arthralgias, Atrophy, Back Pain, Deformity, Joint Swelling, Limited Range of Motion, Loss of Height, Muscle Cramps, Muscle Weakness, Myalgias, Neck Pain, Numbness, Radiating Pain into Limb, Stiffness, Tingling, Other - Integumentary Integumentary: As Per HPI - Neurological Neurological: absent: As Per HPI, Abnormal Gait, Abnormal Hearing, Abnormal Movements, Abnormal Speech, Behavioral Changes, Burning Sensations, Confusion, Convulsions, Disequilibrium, Dizziness, Numbness, Focal Weakness, Frequent Falls, Headaches, Lack of Coordination, Loss of Vision, Memory Loss, Par esthesias, Radicular Pain, Restless Legs, Sensory Deficit, Syncope, Tingling, Tremor, Vertigo, Weakness, Other Visual Disturbances, Other - Psychiatric Psychiatric: absent: As Per HPI, Abnormal Sleep Pattern, Anhedonia, Anxiety, Auditory Hallucinations, Behavioral Changes, Change in Appetite, Change in Libido, Confusion, Depression, Difficulty Concentrating, Hallucinations, Homicidal Ideation, Hopelessness, Irritability, Memory Loss, Mood Swings, Panic Attacks, Paranoia, Suicidal Ideation, Visual Hallucinations, Tactile Hallucinations, Other - Endocrine Endocrine: absent: As Per HPI, Change in Body Appearance, Change in Libido, Cold Intolorance, Deepening of Voice, Excessive Sweating, Fatigue, Flushing, Heat Intolorance, Increase in Ring/Shoe/Hat Size, Palpitations, Polydipsia, Polyphagia, Polyuria, Other - Hematologic/Lymphatic Hematologic: absent: As Per HPI, Easy Bleeding, Easy Bruising, Lymphadenopathy, Other Past Patient History - Infectious Disease Hx of Infectious Diseases: None - Past Medical History & Family History Past Medical History?: Yes - Past Social History Smoking Status: Light Smoker < 10 Cigarettes Daily - CARDIAC Hx Cardiac Disorders: No - PULMONARY Hx Respiratory Disorders: No - NEUROLOGICAL Hx Neurological Disorder: No - HEENT Hx HEENT Problems: No - RENAL Hx Chronic Kidney Disease: No - ENDOCRINE/METABOLIC Hx Endocrine Disorders: No - HEMATOLOGICAL/ONCOLOGICAL Hx Blood Disorders: No - INTEGUMENTARY Hx Dermatological Problems: Yes Other/Comment: recurrent multiple skin abscesses - MUSCULOSKELETAL/RHEUMATOLOGICAL Hx Fractures: Yes (TOE TAPED NO SURGERY LEFT FOOT) - GASTROINTESTINAL Hx Gastrointestinal Disorders: No - GENITOURINARY/GYNECOLOGICAL Hx Genitourinary Disorders: No - PSYCHIATRIC Hx Substance Use: No - SURGICAL HISTORY Hx Surgeries: Yes Other/Comment: Incision and drainage of abscess (rt. armpit, under the stomach,) 2013 EXC. SUPRAPUBIC MASS - ANESTHESIA Hx Anesthesia: Yes Hx Anesthesia Reactions: No Hx Malignant Hyperthermia: No Meds Allergies/Adverse Reactions: Allergies Allergy/AdvReac Type Severity Reaction Status Date / Time No Known Allergies Allergy Verified 12/19/18 13:37 - Medications Medications: Current Medications Docusate Sodium (Colace) 100 mg PO BID [facility] Enoxaparin Sodium (Lovenox) 40 mg SC DAILY [facility] Lactated Ringer's (Lactated Ringer's) 1,000 mls @ 100 mls/hr IV .Q10H [facility] Lactated Ringer's (Lactated Ringer's) 1,000 mls @ 80 mls/hr IV .[id number] [facility] Influenza Virus Vaccine (Flucelvax Quad [id number] Syr) 60 mcg IM .ONCE ONE Stop: 12/20/18 10:01 Oxycodone/Acetaminophen (Percocet 5/325 Mg Tab) 2 tab PO Q4H PRN PRN Reason: pain Stop: 12/22/18 16:35 Pantoprazole Sodium (Protonix Inj) 40 mg IVP DAILY [facility] Physical Exam - Constitutional Appears: Non-toxic, Chronically Ill - Head Exam Head Exam: ATRAUMATIC, NORMAL INSPECTION, NORMOCEPHALIC - Eye Exam Eye Exam: EOMI, Normal appearance, PERRL Pupil Exam: NORMAL ACCOMODATION, PERRL - ENT Exam ENT Exam: Mucous Membranes Moist, Normal Exam - Neck Exam Neck exam: Positive for: Normal Inspection - Respiratory Exam Respiratory Exam: Clear to Auscultation Bilateral, NORMAL BREATHING PATTERN - Cardiovascular Exam Cardiovascular Exam: REGULAR RHYTHM - GI/Abdominal Exam GI & Abdominal Exam: Normal Bowel Sounds, Soft. absent: Tenderness - Rectal Exam Rectal Exam: Deferred - Exam Exam: NORMAL INSPECTION - Extremities Exam Extremities exam: Positive for: normal inspection. Negative for: joint swelling - Back Exam Back exam: NORMAL INSPECTION - Neurological Exam Neurological exam: Alert, CN II-XII Intact, Normal Gait, Oriented x3, Reflexes Normal - Psychiatric Exam Psychiatric exam: Normal Affect, Normal Mood - Skin Skin Exam: Dry Additional comments: wound / packing in right axilla with tenderness warmth Results - Vital Signs Recent Vital Signs: Last Vital Signs Temp 98.3 F 12/19/18 17:57 Pulse 79 12/19/18 17:57 Resp 20 12/19/18 17:57 BP 113/74 12/19/18 17:57 Pulse Ox 97 12/19/18 17:57 - Labs Result Diagrams: 12/20/18 07:19 12/20/18 07:19 Labs: Laboratory Results - last 24 hr 12/19/18 12/19/18 12/19/18 14:25 14:25 14:25 WBC 8.7 RBC 3.97 Hgb 12.1 Hct 35.7 MCV 90.0 MCH 30.5 MCHC 33.9 RDW 13.7 Plt Count 339 MPV 9.0 Neut % (Auto) 58.5 Lymph % (Auto) 34.0 Lynn % (Auto) 5.9 Eos % (Auto) 0.9 Baso % (Auto) 0.7 Neut # (Auto) 5.1 Lymph # (Auto) 2.9 Lynn # (Auto) 0.5 Eos # (Auto) 0.1 Baso # (Auto) 0.1 PT 14.3 H INR 1.3 APTT 37 H Sodium 138 Potassium 4.2 Chloride 101 Carbon Dioxide 29 Anion Gap 12 BUN 14 Creatinine 0.7 Est GFR ( Amer) > 60 Est GFR (Non-Af Amer) > 60 Random Glucose 88 Calcium 9.3 Total Bilirubin 0.4 AST 26 ALT 9 D Alkaline Phosphatase 50 Total Protein 8.3 Albumin 4.3 Globulin 4.0 H Albumin/Globulin Ratio 1.1 Urine Color Urine Clarity Urine pH Ur Specific [place] Urine Protein Urine Glucose (UA) Urine Ketones Urine Blood Urine Nitrate Urine Bilirubin Urine Urobilinogen Ur Leukocyte Esterase Urine WBC (Auto) Urine RBC (Auto) Ur Squamous Epith Cells Urine HCG, Qual 12/19/18 15:00 WBC RBC Hgb Hct MCV MCH MCHC RDW Plt Count MPV Neut % (Auto) Lymph % (Auto) Lynn % (Auto) Eos % (Auto) Baso % (Auto) Neut # (Auto) Lymph # (Auto) Lynn # (Auto) Eos # (Auto) Baso # (Auto) PT INR APTT Sodium Potassium Chloride Carbon Dioxide Anion Gap BUN Creatinine Est GFR ( Amer) Est GFR (Non-Af Amer) Random Glucose Calcium Total Bilirubin AST ALT Alkaline Phosphatase Total Protein Albumin Globulin Albumin/Globulin Ratio Urine Color Yellow Urine Clarity Hazy Urine pH 5.0 Ur Specific [place] 1.023 Urine Protein Negative Urine Glucose (UA) Normal Urine Ketones Negative Urine Blood Negative Urine Nitrate Negative Urine Bilirubin Negative Urine Urobilinogen Normal Ur Leukocyte Esterase Neg Urine WBC (Auto) 1 Urine RBC (Auto) 1 Ur Squamous Epith Cells 2 Urine HCG, Qual Negative Assessment & Plan (1) Axillary abscess Status: Acute (2) H/O drainage of abscess Status: Acute - Assessment and Plan (Free Text) Assessment: hx of multiple skin infections will check for immunodeficiency await cultures consider screen for diabetes IV antibiotics wound care
--- NOTE | 2018-12-21 04:46 | OP ---
PROCEDURE DATE: 12/20/2018 PREOPERATIVE DIAGNOSIS: Large right axillary abscess with open wound. POSTOPERATIVE DIAGNOSIS: Large right axillary abscess with open wound. PROCEDURE PERFORMED: Re-drainage of right axillary abscess, debridement of open wound, partial tissue flap closure. SURGEON: Demetris Crespo MD ANESTHESIA: General. BLOOD LOSS: 20 mL. POSTOPERATIVE CONDITION: Stable. INDICATIONS FOR SURGERY: This is a 33-year-old female who presented with a recurrent large right axillary abscess which was drained yesterday via a wide excision of an infected mass overlying it. She now will undergo change of packing under anesthesia with re-drainage, debridement and pulse irrigation. Of note, the patient grew out gram-positive cocci from the culture yesterday. DESCRIPTION OF PROCEDURE: The patient was taken to the operating room. General anesthesia was administered, and the right axilla was prepped and draped. The wound was reopened and aggressively debrided. Any remaining collections were drained and cultured. Bleeding was controlled using a Bovie. A larger axillary vessel was repaired. The wound was pulse irrigated with saline and Kantrex solution. Tissue flaps were raised at the periphery. Partial tissue flap closure was performed and the central portion of the wound was packed open with wet saline gauze. The patient tolerated the procedure well and returned to recovery room in stable condition. Demetris Crespo MD
[2018-12-21] MEDS: Oxycodone/Acetaminophen 5/325 mg Tab PO PRN ×2 (05:20→20:31)
[2018-12-21] MEDS: Lactated Ringer's 1,000 ML IV SCH ×4 (06:15→20:34)
[2018-12-21 08:14] LABS: IMMUNOGLOBULIN A 351.9 mg/dL (70.0-400.0); IMMUNOGLOBULIN M 107.5 mg/dL (40.0-230.0)
[2018-12-21 08:17] LABS: IMMUNOGLOBULIN G 1165.5 mg/dL (700.0-1600.0)
[2018-12-21] MEDS: Enoxaparin 40 mg Syringe SC SCH (09:38)
[2018-12-21] MEDS ORDERED: Propofol 10 mg/ml Inj (20 ML) ONE (12:41)
[2018-12-21] MEDS ORDERED: Midazolam 2 MG/2 ML VIAL ONE (12:41)
[2018-12-21] MEDS ORDERED: HYDROmorphone 0.5 mg/0.5 ml ISec IVP PRN (13:30)
[2018-12-21] MEDS ORDERED: Lactated Ringer's 1,000 ML IV SCH (13:30)
--- NOTE | 2018-12-21 18:20 | CP.PCM.PN ---
Subjective - Date & Time of Evaluation Date of Evaluation: 12/21/18 Time of Evaluation: 08:00 - Subjective Subjective: awake alert c/o pain no fever Objective - Vital Signs/Intake and Output Vital Signs (last 24 hours): Temp Pulse Resp BP Pulse Ox 98.3 F 74 20 98/62 L 97 12/21/18 16:00 12/21/18 16:00 12/21/18 16:00 12/21/18 16:00 12/21/18 16:00 Intake and Output: 12/21/18 12/21/18 06:59 18:59 Intake Total 700 2020 Balance 700 2020 - Medications Medications: Current Medications Docusate Sodium (Colace) 100 mg PO BID [facility] Last Admin: 12/21/18 17:22 Dose: 100 mg Enoxaparin Sodium (Lovenox) 40 mg SC DAILY [facility] Last Admin: 12/21/18 09:38 Dose: Not Given Hydromorphone HCl (Dilaudid) 0.5 mg IVP Q10M PRN PRN Reason: Pain, moderate (4-7) Last Admin: 12/20/18 18:00 Dose: 0.5 mg Lactated Ringer's (Lactated Ringer's) 1,000 mls @ 80 mls/hr IV .[id number] [facility] Last Admin: 12/21/18 06:15 Dose: Not Given Cefazolin Sodium 1,000 mg/ (Sodium Chloride) 100 mls @ 100 mls/hr IVPB Q8H [facility]; Protocol Last Admin: 12/21/18 14:32 Dose: 100 mls/hr Oxycodone/Acetaminophen (Percocet 5/325 Mg Tab) 2 tab PO Q4H PRN PRN Reason: pain Stop: 12/22/18 16:35 Last Admin: 12/21/18 05:20 Dose: 2 tab Pantoprazole Sodium (Protonix Inj) 40 mg IVP DAILY [facility] Last Admin: 12/21/18 09:27 Dose: 40 mg - Labs Labs: 12/20/18 07:19 12/20/18 07:19 PT 14.3 SECONDS (9.7-12.2) H 12/19/18 14:25 INR 1.3 12/19/18 14:25 APTT 37 SECONDS (21-34) H 12/19/18 14:25 - Constitutional Appears: Non-toxic, No Acute Distress - Head Exam Head Exam: ATRAUMATIC, NORMAL INSPECTION, NORMOCEPHALIC - Eye Exam Eye Exam: EOMI, Normal appearance, PERRL Pupil Exam: NORMAL ACCOMODATION, PERRL - ENT Exam ENT Exam: Mucous Membranes Moist, Normal Exam - Neck Exam Neck Exam: Full ROM, Normal Inspection. absent: Lymphadenopathy - Respiratory Exam Respiratory Exam: Clear to Ausculation Bilateral, NORMAL BREATHING PATTERN - Cardiovascular Exam Cardiovascular Exam: REGULAR RHYTHM, +S1, +S2. absent: Murmur - GI/Abdominal Exam GI & Abdominal Exam: Soft, Normal Bowel Sounds. absent: Tenderness - Rectal Exam Rectal Exam: Deferred - Exam Exam: NORMAL INSPECTION - Extremities Exam Extremities Exam: Full ROM, Normal Capillary Refill, Normal Inspection. absent: Joint Swelling, Pedal Edema - Back Exam Back Exam: NORMAL INSPECTION - Neurological Exam Neurological Exam: Alert, Awake, CN II-XII Intact, Normal Gait, Oriented x3 - Psychiatric Exam Psychiatric exam: Normal Affect, Normal Mood - Skin Skin Exam: Dry, Intact, Normal Color Additional comments: wound packing in place Assessment and Plan (1) Axillary abscess Status: Acute (2) H/O drainage of abscess Status: Acute - Assessment and Plan (Free Text) Assessment: cultures neg thus far cont IV Ancef
--- NOTE | 2018-12-21 23:22 | OP ---
PROCEDURE DATE: 12/21/2018 PREOPERATIVE DIAGNOSIS: Larger wound and abscess of the right axilla. POSTOPERATIVE DIAGNOSIS: Larger wound and abscess of the right axilla. PROCEDURE PERFORMED: Re-drainage, debridement, and partial excision of the wound with partial tissue transfer closure. SURGEON: Demetris Crespo MD ANESTHESIA: General. ESTIMATED BLOOD LOSS: 30 mL. POSTOPERATIVE CONDITION: Stable. INDICATIONS FOR SURGERY: This is a staged procedure. The patient has a large right axillary abscess, has been taken back daily for wound cleansing and change of packing under IV sedation, now taken back today for possible closure. DESCRIPTION OF PROCEDURE: The patient was taken to the operating room. General anesthesia was administered and the right arm was extended and the right axilla was prepped and draped. The wound was again aggressively debrided and any remaining collections were drained and cultured. Partial excision of the wound was performed in order to facilitate closure. The tissue flap closure was performed at the periphery and central portion of wound was packed with wet saline gauze. The patient tolerated the procedure well and returned to recovery room in stable condition. Demetris Crespo MD
[2018-12-22] MEDS: Oxycodone/Acetaminophen 5/325 mg Tab PO PRN (02:54)
[2018-12-22] MEDS: HYDROmorphone 0.5 mg/0.5 ml ISec IVP PRN ×2 (09:10→16:57)
[2018-12-22] MEDS: Enoxaparin 40 mg Syringe SC SCH (10:15)
[2018-12-22] MEDS ORDERED: Propofol 10 mg/ml Inj (20 ML) ONE (15:21)
[2018-12-22] MEDS ORDERED: Midazolam 2 MG/2 ML VIAL ONE (15:21)
[2018-12-22] MEDS ORDERED: Lidocaine Hydrochloride 5 ML INJ ONE (15:23)
[2018-12-22] MEDS ORDERED: Bacitracin Ointment 30 GM TUBE ONE (16:07)
[2018-12-22] MEDS ORDERED: HYDROmorphone 0.5 mg/0.5 ml ISec IVP PRN (16:30)
[2018-12-22 18:22] VITALS: BP 116/71; PULSE 70; RESP 18; TEMP 98.2; O2SAT 96
--- NOTE | 2018-12-22 20:08 | CP.PCM.PN ---
Subjective - Date & Time of Evaluation Date of Evaluation: 12/22/18 Time of Evaluation: 09:00 - Subjective Subjective: IV rx renewed Objective - Vital Signs/Intake and Output Vital Signs (last 24 hours): Temp Pulse Resp BP Pulse Ox 98.2 F 70 18 116/71 96 12/22/18 17:30 12/22/18 17:30 12/22/18 17:30 12/22/18 17:30 12/22/18 17:30 Intake and Output: 12/22/18 12/23/18 18:59 06:59 Intake Total 200 Balance 200 - Labs Labs: 12/20/18 07:19 12/20/18 07:19 PT 14.3 SECONDS (9.7-12.2) H 12/19/18 14:25 INR 1.3 12/19/18 14:25 APTT 37 SECONDS (21-34) H 12/19/18 14:25 Assessment and Plan (1) Axillary abscess Status: Acute (2) H/O drainage of abscess Status: Acute
--- NOTE | 2018-12-23 04:32 | OP ---
PROCEDURE DATE: 12/19/2018 PREOPERATIVE DIAGNOSIS: Abscess and mass of the right axilla. POSTOPERATIVE DIAGNOSIS: Abscess and mass of the right axilla. PROCEDURE PERFORMED: Re-drainage of deep abscess of the right axilla with debridement and advancement flap closures. SURGEON: Demetris Crespo MD ANESTHESIA: General. ESTIMATED BLOOD LOSS: 30 mL POSTOPERATIVE CONDITION: Stable. INDICATIONS FOR SURGERY: This is a staged procedure. The patient had a large right axillary abscess. She has done daily dressing changes in the operating room with washouts, today will undergo debridement and closure. DESCRIPTION OF PROCEDURE: The patient was taken to the operating room. General anesthesia was administered and the right arm was extended and the axilla was prepped and draped. The area was again aggressively debrided. Bleeding was controlled using a Bovie and large axillary blood vessels were repaired. The wound was pulse irrigated with saline and Kantrex solution. Generous tissue flaps were raised. Counter incisions were made and advancement flap closure was performed with heavy Monocryl. The patient tolerated the procedure well and returned to recovery room in stable condition. Demetris Crespo MD
== END 2018-12-22 18:44 | disposition home or self-care (01) | DRG 571 ==
LOC: C.ER 13:16 → C.9E 14:40 → OBSVTOIN 16:34 → C.3T 17:41
PROVIDERS: ADMIT Surgery; ATTEND Surgery
PROC: 0X940ZX Drainage of Right Axilla, Open Approach, Diagnostic (ICD-10-PCS; 2018-12-19)
PROC: 0JBD0ZZ Excision of Right Upper Arm Subcutaneous Tissue and Fascia, Open Approach (ICD-10-PCS; principal; 2018-12-19 15:15)
PROC: 0X940ZZ Drainage of Right Axilla, Open Approach (ICD-10-PCS; 2018-12-20)
PROC: 0X940ZZ Drainage of Right Axilla, Open Approach (ICD-10-PCS; 2018-12-21)
PROC: 0X940ZZ Drainage of Right Axilla, Open Approach (ICD-10-PCS; 2018-12-22)
DX: L02.411 Cutaneous abscess of right axilla (principal); Z68.41 Body mass index [BMI] 40.0-44.9, adult; F17.210 Nicotine dependence, cigarettes, uncomplicated; E66.9 Obesity, unspecified